=== PATIENT | female | born 1945 | race Two or more races ===

== ENCOUNTER 2017-07-10 13:20 | Emergency (ER) | payer OTHER ==
[~2017-07-10] VITALS: Ht 154.9 cm; Wt 81.6 kg
[2017-07-10] MEDS ORDERED: LISI-334 PO (13:34)
[2017-07-10] MEDS ORDERED: HYDROcodone/APAP 5/325MG 1 TAB TABLET PO ONE (13:45)
[2017-07-10 14:01] VITALS: BP 126/61
--- NOTE | 2017-07-10 14:02 | RAD ---
Left knee, 3 views, 07/10/2017: History: Fall, pain There is moderate marginal spurring at the knee joint and at the patellofemoral articulation. There is narrowing of the medial compartment of the knee joint with subchondral sclerosis. No acute fracture or dislocation is identified. Extensive chondrocalcinosis is present. Subcutaneous edema is noted anteriorly. IMPRESSION: 1. Moderately severe degenerative change with chondrocalcinosis. 2. No acute bony abnormality is detected.
[2017-07-10] MEDS ORDERED: HYDR-2758 PO (14:17)
--- NOTE | 2017-07-10 14:17 | PHYS DOC ---
Past Medical History Past Medical History: Hypertension Past Surgical History: No Surgical History Alcohol Use: None Drug Use: None Adult General Chief Complaint Chief Complaint: KNEE INJURY HPI HPI 71-year-old female presents emergency department today after injuring her left knee of tripping on a curb while she was out today. She has sharp mild intermittent left knee pain is worse when she moves the knee. It is worst palpation of the knee. She denies injuring her hip or ankle. She denies abdominal pain chest pain. Review of systems is negative for syncope head injury neck pain. All other review of systems is negative unless otherwise noted in history of present illness. ED course: 71-year-old female presenting with left knee pain. X-ray unremarkable. Patient provided crutches and marisa wrapping. I recommended rest ice elevation. The patient was then discharged home in stable condition to follow up with their primary care physician over the next 2-3 days. They were to return if their symptoms worsened or if they were concerned for any reason. [id number] discharge instructions and return precautions were given. Patient' s questions were answered to their satisfaction. Patient is comfortable plan. Review of Systems Review of Systems SEE ABOVE. Current Medications Current Medications Current Medications Medications (Trade) Dose Ordered Sig/Abiola Start Time Stop Time Status Last Admin Dose Admin Acetaminophen/ Hydrocodone Bitart (Lortab 5/325) 2 tab 1X ONCE 07/10/17 13:45 07/10/17 13:46 DC 07/10/17 13:54 2 TAB Allergies Allergies Allergies Coded Allergies Type Severity Reaction Last Updated Verified No Known Drug Allergies 07/10/17 No Physical Exam Physical Exam SEE ABOVE Constitutional: Well developed, well nourished, no acute distress, non-toxic appearance. HENT: Normocephalic, atraumatic, bilateral external ears normal, oropharynx moist, no oral exudates, nose normal. [] Eyes: PERRLA, EOMI, conjunctiva normal, no discharge. Neck: Normal range of motion, no tenderness, supple, no stridor. [] Cardiovascular:Heart rate regular rhythm, no murmur Lungs & Thorax: Bilateral breath sounds clear to auscultation [] Abdomen: Bowel sounds normal, soft, no tenderness, no masses, no pulsatile masses. [] Skin: Warm, dry, no erythema, no rash. Back: No tenderness, no CVA tenderness. [] Extremities: Left knee is mildly swollen with an abrasion on the anterior surface. Pain with passive range of motion of the knee joint. The joint is stable. Negative posterior drawer test. Negative Judah's test. Negative anterior drawer test. Negative Lida test. Otherwise palpable pulse distally with 2 second cap refill and normal neurovascular status. Neurologic: Alert and oriented X 3, normal motor function, normal sensory function, no focal deficits noted. [] Psychologic: Affect normal, judgement normal, mood normal. Current Patient Data Vital Signs Vital Signs Date Time Temp Pulse Resp B/P (MAP) Pulse Ox O2 Delivery O2 Flow Rate FiO2 07/10/17 13:54 16 07/10/17 13:33 98.2 71 141/70 (93) 98 Room Air 98.2 EKG EKG [] Radiology/Procedures Radiology/Procedures [] Course & Med Decision Making Course & Med Decision Making Pertinent Labs and Imaging studies reviewed. (See chart for details) [] Dragon Disclaimer Dragon Disclaimer This electronic medical record was generated, in whole or in part, using a voice recognition dictation system. Departure Departure Impression: Primary Impression: Left knee injury Disposition: HOME, SELF-CARE Condition: STABLE Patient Instructions: Knee Pain Additional Instructions: Thank you for allowing us to participate in your care today. Followup with your primary care physician in 3 days if your symptoms do not improve. Call your Primary Doctor tomorrow and inform them of your visit today. If you do not have a primary care provider you can ask for a list of our primary care providers. Return to the emergency department you have any new or concerning findings. This should be evaluated by the primary care physician and any necessary consulting services for continued management within a few days after discharge. Return to emergency room if you have any new or concerning symptoms including but not limited to fever, chills, nausea, vomiting, intractable pain, any new rashes, chest pain, shortness of air, uncontrolled bleeding, difficulty breathing, and/or vision loss. Scripts Hydrocodone Bit/Acetaminophen (HYDROCODONE-APAP 5-325 ) 1 Each Tablet 1 TAB PO PRN Q6HRS Y for PAIN, #15 TAB 0 Refills Be careful as this medication may cause you to be drowsy or tired. Do not drive on this medication. Prov: SUZETTE RYDER MD 07/10/17 SUZETTE RYDER MD Jul 10, 2017 14:17
== END 2017-07-10 14:36 | disposition home or self-care (01) ==
LOC: ER 13:20
DX: S89.92XA Unspecified injury of left lower leg, initial encounter (principal); W18.49XA Other slipping, tripping and stumbling without falling, initial encounter; Y93.89 Activity, other specified; Y92.89 Other specified places as the place of occurrence of the external cause; Y99.8 Other external cause status
CPT/HCPCS: 73562; 99284